=== PATIENT | male | born 2000 | race Asian ===

== ENCOUNTER → 2019-05-16 | Outpatient (CLI) | payer OTHER ==
[2019-05-16 10:33] LABS: BASOPHIL % 0.7 % (0-2); PLATELET COUNT 360 x10^3mcL (130-400)
[2019-05-16 11:15] LABS: RED CELL DISTRIBUTION WIDTH 16.5 % (11.5-14.5)
[2019-05-16 11:52] LABS: ALBUMIN 4.2 g/dL (3.4-5.0); ALKALINE PHOSPHATASE 93 U/L (46-116); ALT/SGPT 40 U/L (16-63); AST/SGOT 19 U/L (15-37); BILIRUBIN TOTAL 0.66 mg/dL (0.20-1.00); CALCIUM 9.2 mg/dL (8.5-10.1); CARBON DIOXIDE 31.4 mmol/L (21-32); CHLORIDE SERUM 103 mmol/L (98-107); CHOLESTEROL 157 mg/dL (<200); CREATININE SERUM 0.9 mg/dL (0.7-1.3); GFR1 > 60 mL/min; GLUCOSE SERUM 96 mg/dL (74-106); POTASSIUM SERUM 4.5 mmol/L (3.5-5.1); SODIUM SERUM 140 mmol/L (136-145); TRIGLYCERIDES 70 mg/dL (<150)
[2019-05-16 11:53] LABS: CHOLESTEROL/HDL RATIO 4.6; HDL CHOLESTEROL 34 mg/dL (40-60)
== END | disposition home or self-care (01) ==
LOC: LB 10:13
DX: Z00.00 Encounter for general adult medical examination without abnormal findings (principal); E55.9 Vitamin D deficiency, unspecified